=== PATIENT | female | born 1980 | race Two or more races ===

== ENCOUNTER 2018-12-31 19:02 | Emergency (ER) | payer SELFPAY ==
--- NOTE | 2018-12-31 20:55 | ER Document Report ---
ED Medical Screen (RME) - General Chief Complaint: Ankle Injury Stated Complaint: ANKLE INJURY Time Seen by Provider: 12/31/18 20:53 Primary Care Provider: LAUREN MARIE [Primary Care Provider] - Follow up as needed Mode of Arrival: Wheelchair Information source: Patient, Relative Notes: 38-year-old female presents emergency department right foot and ankle pain after twisting it on Sunday. Reports pain since that time. I have greeted and performed a rapid initial assessment of this patient. A comprehensive ED assessment and evaluation of the patient, analysis of test results and completion of the medical decision making process will be conducted by additional ED providers. Dictation of this chart was performed using voice recognition software; therefore, there may be some unintended grammatical errors. TRAVEL OUTSIDE OF THE [place] IN LAST 30 DAYS: No - Related Data Allergies/Adverse Reactions: No Known Allergies Allergy (Verified 10/22/14 21:54) Past Medical History Past Surgical History: Reports: Hx Section Physical Exam - Vital signs Vitals: Temp Pulse Resp BP Pulse Ox 97.3 F 71 18 142/74 H 96 12/31/18 19:28 12/31/18 19:28 12/31/18 19:28 12/31/18 19:28 12/31/18 19:28 Course - Vital Signs Vital signs: Temp Pulse Resp BP Pulse Ox 97.3 F 71 18 142/74 H 96 12/31/18 19:28 12/31/18 19:28 12/31/18 19:28 12/31/18 19:28 12/31/18 19:28 Doctor's Discharge - Discharge Referrals: LAUREN MARIE [Primary Care Provider] - Follow up as needed
[2018-12-31] MEDS ORDERED: HYDROCODONE/ACETAMINOPHEN 5-325 MG TABLET PO ONE (21:18)
--- NOTE | 2018-12-31 21:19 | ER Document Report ---
HPI - HPI Patient complains to provider of: Right ankle and foot injury Time Seen by Provider: 12/31/18 20:53 Onset: Other - 2 days ago Onset/Duration: Persistent Quality of pain: Sharp Pain Level: 3 Context: Patient reports stumbling and twisting her ankle and foot 3 times over the past week with the most recent episode 2 days ago. Patient presents complaining of r ight lateral ankle pain and right foot pain with significant swelling and bruising. Patient states she has not been able to put weight to the foot and has borrowed someone's crutches. Associated Symptoms: Other - Right foot and ankle injury Exacerbated by: Standing, Movement, Walking Relieved by: Denies Similar symptoms previously: No Recently seen / treated by doctor: No - ROS ROS below otherwise negative: Yes Systems Reviewed and Negative: Yes All other systems reviewed and negative - NEURO Neurology: DENIES: Weakness - GASTROINTESTINAL Gastrointestinal: DENIES: Nausea, Patient vomiting - REPRODUCTIVE Reproductive: DENIES: : - MUSCULOSKELETAL Musculoskeletal: REPORTS: Extremity pain, Swelling - DERM Skin Color: Ecchymosis Skin Problems: None Past Medical History - General Information source: Patient, Relative - Social History Smoking Status: Never Smoker Frequency of alcohol use: None Drug Abuse: None Occupation: [employer] Lives with: Family Family History: None Patient has suicidal ideation: No Patient has homicidal ideation: No - Medical History Medical History: Negative Past Surgical History: Reports: Hx Section Vertical Provider Document - CONSTITUTIONAL Agree With Documented VS: Yes Exam Limitations: No Limitations General Appearance: WD/WN, No Apparent Distress - INFECTION CONTROL TRAVEL OUTSIDE OF THE [place] IN LAST 30 DAYS: No - HEENT HEENT: Atraumatic, Normocephalic - NECK Neck: Normal Inspection - RESPIRATORY Respiratory: No Respiratory Distress - CARDIOVASCULAR Pulses: Normal: Dorsalis pedis - MUSCULOSKELETAL/EXTREMETIES Musculoskeletal/Extremeties: MAEW, Tender - right ankle tenderness over the lateral malleolar area with 2+ edema and ecchymosis, right midfoot tenderness with 3+ edema and ecchymosis, no obvious deformity, Edema, Eccymosis - NEURO Level of Consciousness: Awake, Alert, Appropriate Motor/Sensory: No Motor Deficit - DERM Integumentary: Warm, Dry Course - Re-evaluation Re-evalutation: 12/31/18 22:05 Call placed for consultation with Dr. Macias, message left for return call per regenerator operator. 12/31/18 22:05 Call placed to radiologist about concern of missed midfoot fracture, telecom field technician with the radiology department passed on the message to the radiologist about the concern about a need for an addendum. 12/31/18 22:[address] Macias who recommends CT imaging of the foot and having patient follow-up in the office tomorrow morning, agrees with plan for splinting. - Vital Signs Vital signs: Temp Pulse Resp BP Pulse Ox 97.3 F 71 18 142/74 H 96 12/31/18 19:28 12/31/18 19:28 12/31/18 19:28 12/31/18 19:28 12/31/18 19:28 - Diagnostic Test Radiology reviewed: Image reviewed, Reports reviewed Procedures - Immobilization Right Foot Pre-Proc Neuro Vasc Exam: Normal Immobilizer type: Posterior ankle Performed by: PCT Post-Proc Neuro Vasc Exam: Normal Alignment checked and good: Yes Discharge - Discharge Clinical Impression: Fracture of distal fibula Qualifiers: Encounter type: initial encounter Fracture type: closed Fracture morphology: unspecified fracture morphology Laterality: right Qualified Code(s): S82.831A - Other fracture of upper and lower end of right fibula, initial encounter for closed fracture Foot fracture, right Qualifiers: Encounter type: initial encounter Fracture type: closed Qualified Code(s): S92.901A - Unspecified fracture of right foot, initial encounter for closed fracture Condition: Stable Disposition: HOME, SELF-CARE Instructions: Use of Crutches ([facility]), Foot Fracture ([facility]), Fracture of Distal Fibula ([facility]), Ice & Elevation ([facility]), Oral Narcotic Medication ([facility]) Additional Instructions: Return immediately for any new or worsening symptoms Followup with your Dr. Macias in the office tomorrow morning. Prescriptions: Naproxen [Naprosyn 250 Nmg Tablet] 1 tab PO BID #14 tablet Hydrocodone/Acetaminophen [[place] 5-325 mg Tablet] 1 tab PO Q6 PRN #10 tablet PRN Reason: Forms: Parent Work Note Referrals: JUAN MACIAS MD [ACTIVE STAFF] - Follow up tomorrow
--- NOTE | 2018-12-31 21:49 | RADIOLOGY REPORT (SQ) ---
EXAM DESCRIPTION: Right ankle [facility]Lex: XR ANKLE 3 OR MORE VIEWS Views: 3 CLINICAL HISTORY: 38 years Female, twisted, pain COMPARISON: None. FINDINGS: There is an oblique acute fracture extending from posterior to anterior through the distal metadiaphyseal region of the fibula, with minimal displacement. Distal tibia is intact. Overall alignment of the tibiotalar joint is anatomic. No hyperdense foreign bodies. IMPRESSION: 1. Minimally displaced acute fracture of the distal fibula
--- NOTE | 2018-12-31 21:53 | RADIOLOGY REPORT (SQ) ---
EXAM DESCRIPTION: Right foot [facility]: XR FOOT 3 OR MORE VIEWS Views: 3 CLINICAL HISTORY: 38 years Female, twisted, pain COMPARISON: None. FINDINGS: Oblique fracture of the distal fibula is noted, as described on ankle radiographs. Alignment of the metatarsals and phalanges is anatomic. No additional fractures. No hyperdense foreign bodies. Soft tissue edema is noted, but there is no soft tissue air. IMPRESSION: 1. Distal fibular fracture as seen on ankle radiographs. 2. No additional fractures.
--- NOTE | 2018-12-31 22:50 | RADIOLOGY REPORT (SQ) ---
EXAM DESCRIPTION: CT LOWER EXTREMITY WITHOUT IV CONTRAST COMPLETED DATE/TME: 12/31/2018 22:07 CLINICAL HISTORY: Pain. 38 years Female, Right midfoot fracture, ?lisfranc, r fib tx COMPARISON: Same day. Technique: No IV contrast. Coronal and sagittal reformat. 3d reconstruction. This exam was performed according to our departmental dose-optimization program, which includes automated exposure control, adjustment of the mA and/or kV according to patient size and/or use of iterative reconstruction technique. [facility]: Dose Right [facility]: CareDose [facility]: Dose Right [facility]: Teradose 4D [facility]: Soapbox LIMITATIONS: None Findings: Acute intra-articular minimally distracted fracture of the distal right fibular diametaphysis. Acute 0.7 cm intraarticular avulsive fracture fragment at the upper aspect of the right medial cuneiform. Comminuted nondisplaced acute fracture at the base of the right second metatarsus. Acute intra-articular nondisplaced fracture of the right fourth metatarsal base and proximal shaft. Moderate swelling. Bones, joints, and soft tissues of the CT RIGHT ankle/foot LOWER EXTREMITY WITHOUT IV CONTRAST appear otherwise unremarkable. IMPRESSION: 1. Acute intra-articular minimally distracted fracture of the distal right fibular diametaphysis. 2. Acute 0.7 cm intraarticular avulsive fracture fragment at the upper aspect of the right medial cuneiform. 3. Comminuted nondisplaced acute fracture at the base of the right second metatarsus. 4. Acute intra-articular nondisplaced fracture of the right fourth metatarsal base and proximal shaft.
[2018-12-31] MEDS ORDERED: HYDROCODONE/ACETAMINOPHEN 5-325 MG (6 TAB/ER DISP) PO PRN (23:30)
[2018-12-31 23:44] VITALS: BP 131/68
== END 2018-12-31 23:44 | disposition home or self-care (01) ==
LOC: ER 19:02
DX: S82.431A Displaced oblique fracture of shaft of right fibula, initial encounter for closed fracture (principal); S92.321A Displaced fracture of second metatarsal bone, right foot, initial encounter for closed fracture; S92.241A Displaced fracture of medial cuneiform of right foot, initial encounter for closed fracture; S92.344A Nondisplaced fracture of fourth metatarsal bone, right foot, initial encounter for closed fracture; X50.1XXA Overexertion from prolonged static or awkward postures, initial encounter
CPT/HCPCS: 99284